=== PATIENT | male | born 1965 | race Two or more races ===

== ENCOUNTER 2020-05-31 05:45 | Inpatient (IN) | payer OTHER ==
[~2020-05-31] VITALS: Ht 172.7 cm; Wt 86.2 kg
[~2020-05-31 05:45] MED LIST: BUPROP PO; BUSPIRONE HCL10 MG PO; POT CITRATE PO; TRAZODONE HCL50 MG PO; [UNRECOGNIZED DRUG - CODE] PO
[2020-05-31] MEDS ORDERED: BUPROPION HCL100 M1 (13:04)
[2020-05-31] MEDS ORDERED: FOSINOPRIL SODI40 MG (13:04)
[2020-05-31] MEDS ORDERED: UROCIT-K15 MEQ (13:05)
[2020-05-31] MEDS ORDERED: POTASSIUM CITR15 MEQ (13:05)
== END 2020-06-02 10:47 | disposition home or self-care (01) | DRG 661 ==
LOC: CIR.AMB 05:45 → O/R 11:55 → SURG 11:55
PROVIDERS: ADMIT Urology; ATTEND Urology
PROC: 0T778DZ Dilation of Left Ureter with Intraluminal Device, Via Natural or Artificial Opening Endoscopic (ICD-10-PCS; 2020-05-31)
PROC: 0TC48ZZ Extirpation of Matter from Left Kidney Pelvis, Via Natural or Artificial Opening Endoscopic (ICD-10-PCS; principal; 2020-05-31 07:00)
DX: N20.0 Calculus of kidney (principal); I10 Essential (primary) hypertension

== ENCOUNTER 2020-06-05 12:53 | Inpatient (IN) | payer OTHER ==
[~2020-06-05] VITALS: Ht 172.7 cm; Wt 86.2 kg
[~2020-06-05 12:53] MED LIST changes: +BUPROPION HCL100 M1; +FOSINOPRIL SODI40 MG; +POTASSIUM CITR15 MEQ; +UROCIT-K15 MEQ
[2020-06-05] MEDS ORDERED: CIPROFLOXACIN500 MG PO (13:06)
[2020-06-07] MEDS ORDERED: POTASSIUM CITR15 MEQ (09:41)
== END 2020-06-08 10:54 | disposition home or self-care (01) | DRG 661 ==
LOC: ER 12:53 → SURH 19:58
PROVIDERS: Urology; ADMIT Urology; ATTEND Urology
PROC: BW2110Z Computerized Tomography (CT Scan) of Abdomen and Pelvis using Low Osmolar Contrast, Unenhanced and Enhanced (ICD-10-PCS; 2020-06-05)
PROC: 0TC78ZZ Extirpation of Matter from Left Ureter, Via Natural or Artificial Opening Endoscopic (ICD-10-PCS; 2020-06-07)
PROC: 0T778DZ Dilation of Left Ureter with Intraluminal Device, Via Natural or Artificial Opening Endoscopic (ICD-10-PCS; principal; 2020-06-07 17:15)
DX: N20.2 Calculus of kidney with calculus of ureter (principal); I10 Essential (primary) hypertension; Z87.442 Personal history of urinary calculi; Z20.822 Contact with and (suspected) exposure to COVID-19

== ENCOUNTER 2020-07-12 05:40 | Day surgery (SDC) | payer OTHER ==
[~2020-07-12 05:40] MED LIST changes: +CIPROFLOXACIN500 MG PO
== END 2020-07-12 17:05 | disposition home or self-care (01) ==
LOC: CIR.AMB 05:40
PROVIDERS: ATTEND Urology
DX: N20.0 Calculus of kidney (principal); Z20.822 Contact with and (suspected) exposure to COVID-19

== ENCOUNTER 2020-08-02 18:40 | Inpatient (IN) | payer OTHER ==
[~2020-08-02] VITALS: Ht 172.7 cm; Wt 86.2 kg
[2020-08-02] MEDS ORDERED: VITAMIN B-6250 MG PO (18:48)
--- NOTE | 2020-08-02 18:49 | NUR ---
SE RECIBE PACIENTE ALERTA, ORIENTADO EN TIEMPO, LUGAR Y PERSONA REFIERE VENIR REFERIDO PARA ADMISION , POR COMPLICACION EN PROCEDIMIENTO DE REMOVER CATETER DE AREA DE RINON. SE UBICA EN AREA DE OBSERVACION.
--- NOTE | 2020-08-02 21:16 | NUR ---
PTE ALERTA Y ORIENTADO X3 EN BUTACA. SE CANALIZA AREA BEATRICE DE EDEMA Y DE ENROJECIMIENTO. SE LE ELLIS MUESTRAS DE LAB. GABRIEL ORDEN MEDICA BAJO MEDIDAS ASEPTICAS. SE EDUCA A PTE SOBRE TRATAMIENTO MEDICO.
== END 2020-08-03 11:20 | disposition home or self-care (01) | DRG 660 ==
LOC: ER 18:40 → SURG 22:28 → SEC-K 22:28 → O/R 23:52 → SURG 08-03 01:41
PROVIDERS: ADMIT Urology; ATTEND Urology
PROC: 0TP98DZ Removal of Intraluminal Device from Ureter, Via Natural or Artificial Opening Endoscopic (ICD-10-PCS; principal; 2020-08-03)
PROC: 0T778DZ Dilation of Left Ureter with Intraluminal Device, Via Natural or Artificial Opening Endoscopic (ICD-10-PCS; 2020-08-03)
DX: T83.113A Breakdown (mechanical) of other urinary stents, initial encounter (principal); N20.2 Calculus of kidney with calculus of ureter; I10 Essential (primary) hypertension; N20.0 Calculus of kidney